=== PATIENT | male | born 1985 | race African-American/Black ===

== ENCOUNTER 2022-07-05 17:37 | Emergency (ER) | payer MEDICAID, OTHER ==
[~2022-07-05] VITALS: Ht 167.6 cm; Wt 91.0 kg
[~2022-07-05 17:37] MED LIST: AMOX200S7 PO; NONE REPORTED
[2022-07-05 18:07] VITALS: BP 126/81
[2022-07-05] MEDS ORDERED: HYDR30CR80 TP (21:41)
[2022-07-05] MEDS ORDERED: PHEN1SUP RC (21:41)
== END 2022-07-05 23:13 | disposition home or self-care (01) ==
LOC: ER 17:37
DX: K64.8 Other hemorrhoids (principal); K92.1 Melena; Z85.9 Personal history of malignant neoplasm, unspecified
CPT/HCPCS: 99282

== ENCOUNTER 2022-12-04 16:06 | Emergency (ER) | payer MEDICAID, OTHER ==
[~2022-12-04] VITALS: Ht 170.2 cm; Wt 78.0 kg
[~2022-12-04 16:06] MED LIST changes: +HYDR30CR80 TP; +PHEN1SUP RC
[2022-12-04 16:53] VITALS: BP 128/88
== END 2022-12-04 18:47 | disposition left against medical advice (07) ==
LOC: ER 16:15
DX: Z53.21 Procedure and treatment not carried out due to patient leaving prior to being seen by health care provider (principal)

== ENCOUNTER 2023-11-29 00:37 | Emergency (ER) | payer OTHER ==
[~2023-11-29] VITALS: Ht 170.2 cm; Wt 80.0 kg
[2023-11-29 01:00] VITALS: BP 130/95; PULSE 75; RESP 12; TEMP 98; O2SAT 99
[2023-11-29 02:14] LABS: CLARITY URINE CLEAR (CLEAR); COLOR URINE YELLOW (YELLOW); GLUCOSE URINE NEGATIVE (NEGATIVE); KETONES URINE TRACE (NEGATIVE); LEUKOCYTE ESTERASE URINE NEGATIVE (NEGATIVE); NITRITE URINE NEGATIVE (NEGATIVE); OCCULT BLOOD URINE NEGATIVE (NEGATIVE); PROTEIN URINE NEGATIVE (NEGATIVE); SPECIFIC GRAVITY URINE 1.028 (1.005-1.030)
[2023-11-29] MEDS ORDERED: DOXY-456 MT (02:28)
[2023-11-29] MEDS ORDERED: IBUP-2029 MT (02:28)
[2023-11-29] MEDS: DOXYCYCLINE HYCLATE 100MG CAPSULE PO ONE (02:30)
[2023-11-29] MEDS: IBUPROFEN 600MG TABLET PO ONE (02:30)
[2023-11-29] MEDS: CEFTRIAXONE SODIUM 500MG VIAL IM ONE (02:32)
[2023-11-30 19:11] LABS: CHLAMYDIA TRACHOMATIS NAA Positive (Negative); NEISSERIA GONORRHOEAE NAA Negative (Negative)
== END 2023-11-29 02:44 | disposition home or self-care (01) ==
LOC: ER 00:37
DX: R36.9 Urethral discharge, unspecified (principal)
CPT/HCPCS: 99285; 93976; 87491; 87591; 81003; 76870; 96372; J0696

== ENCOUNTER 2024-09-16 05:16 | Emergency (ER) | payer OTHER ==
[~2024-09-16] VITALS: Ht 170.2 cm; Wt 84.2 kg
[~2024-09-16 05:16] MED LIST changes: +DOXY100C74 MT; +IBUP-2029 MT
[2024-09-16 05:35] VITALS: O2SAT 99
[2024-09-16] MEDS: CEFTRIAXONE SODIUM 500MG VIAL IM ONE (06:18)
[2024-09-16] MEDS ORDERED: DOXY100T2 MT (07:21)
[2024-09-16 07:30] VITALS: BP 138/76; PULSE 72; RESP 16; TEMP 36.72516; O2SAT 99
[2024-09-16 14:30] LABS: CLARITY URINE CLEAR (CLEAR); COLOR URINE YELLOW (YELLOW); GLUCOSE URINE NEGATIVE (NEGATIVE); KETONES URINE NEGATIVE (NEGATIVE); LEUKOCYTE ESTERASE URINE NEGATIVE (NEGATIVE); NITRITE URINE NEGATIVE (NEGATIVE); OCCULT BLOOD URINE NEGATIVE (NEGATIVE); PH URINE 5.5 (4.5-8.0); PROTEIN URINE NEGATIVE (NEGATIVE); SPECIFIC GRAVITY URINE 1.021 (1.005-1.030); UROBILINOGEN URINE 0.2 E.U./dL (0.2-1.0)
[2024-09-18 08:13] LABS: CHLAMYDIA TRACHOMATIS NAA Negative (Negative); NEISSERIA GONORRHOEAE NAA Negative (Negative)
== END 2024-09-16 07:30 | disposition home or self-care (01) ==
LOC: ER 05:16
DX: R36.9 Urethral discharge, unspecified (principal); Z79.899 Other long term (current) drug therapy
CPT/HCPCS: 99283; 87491; 87591; 81003; 96372; J0696

== ENCOUNTER 2024-11-28 12:47 | Emergency (ER) | payer OTHER ==
[~2024-11-28] VITALS: Ht 172.7 cm; Wt 70.0 kg
[~2024-11-28 12:47] MED LIST changes: +DOXY100T2 MT
[2024-11-28 12:51] VITALS: O2SAT 98
[2024-11-28 12:55] VITALS: BP 126/92; PULSE 62; RESP 18; TEMP 36.8; O2SAT 96
== END 2024-11-28 16:40 | disposition left against medical advice (07) ==
LOC: ER 12:47
DX: K64.9 Unspecified hemorrhoids (principal); Z53.21 Procedure and treatment not carried out due to patient leaving prior to being seen by health care provider

== ENCOUNTER 2024-11-30 01:10 | Emergency (ER) | payer OTHER ==
[~2024-11-30] VITALS: Ht 170.2 cm; Wt 75.2 kg
[2024-11-30 01:23] VITALS: BP 126/92; TEMP 36.7; O2SAT 98
[2024-11-30 01:27] VITALS: PULSE 78; O2SAT 100
[2024-11-30] MEDS ORDERED: HYDR28.485 RC (01:54)
== END 2024-11-30 03:14 | disposition home or self-care (01) ==
LOC: ER 01:10
DX: K64.8 Other hemorrhoids (principal); Z87.19 Personal history of other diseases of the digestive system
CPT/HCPCS: 99282

== ENCOUNTER 2025-02-02 04:40 | Emergency (ER) | payer OTHER ==
[~2025-02-02] VITALS: Ht 167.6 cm; Wt 80.0 kg
[~2025-02-02 04:40] MED LIST changes: +DOXY-461 MT; -DOXY100C74 MT; +HYDR28.485 RC
[2025-02-02 05:05] VITALS: BP 121/93; PULSE 86; RESP 18; TEMP 36.7; O2SAT 100; O2SAT 97
[2025-02-02] MEDS: BISACODYL 5MG TABLET PO STA (06:49)
[2025-02-02] MEDS: PHENYLEPHRINE/SHK LV/MO/PET RECTAL OINTMENT 28GM PR STA (06:49)
[2025-02-02 08:17] LABS: BASOPHILS % 0.7 % (0.0-2.0); EOSINOPHILS % 1.1 % (0.0-5.0); HEMATOCRIT. 52.4 % (42.0-52.0); HEMOGLOBIN. 17.4 g/dL (14.0-18.0); LYMPHOCYTES % 42.1 % (20.0-50.0); MEAN CORPUSCULAR HEMOGLOBIN 29.1 pg (28.0-32.0); MEAN CORPUSCULAR HGB CONC 33.1 g/dL (31.0-37.0); MEAN CORPUSCULAR VOLUME 87.8 fL (80.0-94.0); MEAN PLATELET VOLUME 7.4 fl (7.4-10.4); MONOCYTES % 10.4 % (2.0-8.0); NEUTROPHILS % 45.7 % (40.0-76.0); PLATELET 233 x1000/uL (130-400); RED BLOOD CELL COUNT 5.97 mill/uL (4.7-6.1); RED CELL DISTRIBUTION WIDTH 13.1 % (11.6-14.6); WHITE BLOOD COUNT 5.5 x1000/uL (4.5-11.0)
[2025-02-02 08:23] LABS: CARBON DIOXIDE 23 mEq/L (21-32); CHLORIDE 111 mEq/L (98-107); POTASSIUM 3.9 mEq/L (3.5-5.1); SODIUM 140 mEq/L (136-145)
[2025-02-02 08:24] LABS: CALCIUM 9.6 mg/dL (8.7-10.4)
[2025-02-02 08:29] LABS: CREATININE 1.1 mg/dL (0.6-1.3); GLUCOSE 141 mg/dL (70-105); UREA NITROGEN BLOOD 10 mg/dL (9-23)
== END 2025-02-02 08:43 | disposition left against medical advice (07) ==
LOC: ER 04:40
DX: K64.9 Unspecified hemorrhoids (principal); Z87.19 Personal history of other diseases of the digestive system
CPT/HCPCS: 36415; 80048; 85025; 99283

== ENCOUNTER 2025-02-15 17:21 | Emergency (ER) | payer OTHER ==
[~2025-02-15] VITALS: Ht 170.2 cm; Wt 64.0 kg
[2025-02-15 17:23] VITALS: O2SAT 99
[2025-02-15 17:24] VITALS: BP 132/90; PULSE 79; RESP 16; TEMP 36.8; O2SAT 98
[2025-02-15 17:58] LABS: BASOPHILS % 1.7 % (0.0-2.0); EOSINOPHILS % 1.6 % (0.0-5.0); HEMATOCRIT. 51.4 % (42.0-52.0); HEMOGLOBIN. 17.6 g/dL (14.0-18.0); LYMPHOCYTES % 41.1 % (20.0-50.0); MEAN CORPUSCULAR HEMOGLOBIN 30.1 pg (28.0-32.0); MEAN CORPUSCULAR HGB CONC 34.3 g/dL (31.0-37.0); MEAN CORPUSCULAR VOLUME 87.8 fL (80.0-94.0); MEAN PLATELET VOLUME 7.4 fl (7.4-10.4); NEUTROPHILS % 43.6 % (40.0-76.0); PLATELET 222 x1000/uL (130-400); RED BLOOD CELL COUNT 5.85 mill/uL (4.7-6.1); RED CELL DISTRIBUTION WIDTH 13.1 % (11.6-14.6); WHITE BLOOD COUNT 7.2 x1000/uL (4.5-11.0)
[2025-02-15 18:07] LABS: CHLORIDE 110 mEq/L (98-107); POTASSIUM 3.7 mEq/L (3.5-5.1); SODIUM 141 mEq/L (136-145)
[2025-02-15 18:08] LABS: CALCIUM 9.3 mg/dL (8.7-10.4); CARBON DIOXIDE 23 mEq/L (21-32)
[2025-02-15 18:13] LABS: CREATININE 1.2 mg/dL (0.6-1.3); GLUCOSE 116 mg/dL (70-105); UREA NITROGEN BLOOD 7 mg/dL (9-23)
[2025-02-15 18:48] LABS: CLARITY URINE CLEAR (CLEAR); COLOR URINE YELLOW (YELLOW); GLUCOSE URINE NEGATIVE (NEGATIVE); KETONES URINE NEGATIVE (NEGATIVE); LEUKOCYTE ESTERASE URINE NEGATIVE (NEGATIVE); NITRITE URINE NEGATIVE (NEGATIVE); OCCULT BLOOD URINE TRACE (NEGATIVE); PH URINE 5.5 (4.5-8.0); PROTEIN URINE NEGATIVE (NEGATIVE); SPECIFIC GRAVITY URINE 1.026 (1.005-1.030); UROBILINOGEN URINE 0.2 E.U./dL (0.2-1.0)
[2025-02-15 19:06] LABS: BACTERIA URINE TRACE; RBC URINE 0-2 /hpf (0-2); SQUAMOUS EPITHELIAL CELL URINE RARE /lpf (RARE/1+); WBC URINE 0-2 /hpf (0-2)
== END 2025-02-15 19:31 | disposition home or self-care (01) ==
LOC: ER 17:27
DX: K64.1 Second degree hemorrhoids (principal)
CPT/HCPCS: 36415; 80048; 81003; 85025; 99283